=== PATIENT | female | born 1975 | race Caucasian/White ===

== ENCOUNTER 2022-07-21 13:13 | Inpatient (IN) ==
[2022-07-21] MEDS ORDERED: KETOROLAC TROMETHAMINE 15 MG/ML VIAL IV STA (13:28)
--- NOTE | 2022-07-21 13:28 | ED Triage Note ---
Date of Service July 21, 2022 History of Present Illness This patient was briefly evaluated while in triage. An abbreviated physical exam was performed. This patient is a 47-year-old Female who presents to the ED for evaluation of left sided flank pain. Diagnosed with 4.5mm kidney stone at [facility]. Notes increasing pain as well as decreased voiding and hematuria. Denies fever/chills. She has been taking her prescribed oxycodone and Flomax. Physical Exam Constitutional: alert and oriented x3.mild distress secondary to pain HEENT: normocephalic, atraumatic. normal conjunctiva.PERRLA. EOM's grossly intact. Respiratory: lungs are clear to auscultation without wheezes, rhonchi, or rales bilaterally. equal chest rise. normal respiratory effort, no accessory muscle use. Cardiovascular: normal heart sounds without murmur. regular rate and rhythm. GI: abdomen is soft, nontender. No palpable masses. No rebound tenderness or guarding. Left CVA tenderness MSK: moves all 4 extremities spontaneously Psych:appropriate mood and affect. Initial orders for labs and / or imaging were placed and patient was placed in the waiting area until a bed is available. Please see further documentation for the full ED course.
--- NOTE | 2022-07-21 14:53 | Emergency Department Note ---
History of Present Illness General Chief complaint: Flank Pain Stated complaint: KIDNEY STONE, FLANK PAIN Time Seen by Provider: 07/21/22 14:42 History of Present Illness Maximum Pain Intensity: 10 This is a 47-year-old female that presents to the emergency department via private vehicle with complaints of "kidney stone, flank pain". Patient notes that she has had hematuria for the past 2 to 3 weeks. Then this past she began with left flank pain/abdominal pain. She had associated nausea and vomiting. She notes she presented to [place] emergency department where she was diagnosed with a 4.5 mm kidney stone on the left. She notes that she was discharged home on Flomax and analgesia. She was doing well but this morning noted severe discomfort that has not been alleviated by the prescription pain medication she was provided on her recent ED visit. She denies any fevers or chills. She has had 2 doses of tamsulosin since discharge from the emergency department. She denies chance of noting history of hysterectomy. No history of kidney stones. Home Medications Medication Instructions Recorded Confirmed Type bupropion HCl 300 mg 24 hr tablet, 300 mg PO QAM 11/21/20 07/21/22 History extended release ibuprofen 200 mg tablet (Advil) 200 - 400 mg PO Q6H PRN Pain 11/21/20 07/21/22 History lisinopril 10 mg tablet 10 mg PO DAILY 11/21/20 07/21/22 History vitamin C 50 mg-biotin 1,250 mcg 1 tab PO DAILY 04/26/21 07/21/22 History chewable tablet ([id number] (vit C-biotin)) cholecalciferol (vitamin D3) 125 125 mcg PO DAILY 07/21/22 07/21/22 History mcg (5,000 unit) capsule propranolol 40 mg tablet 40 mg PO DAILY 07/21/22 07/21/22 History tamsulosin 0.4 mg capsule 0.4 mg PO DAILY 07/21/22 07/21/22 History vitamin B complex 1 tab PO DAILY 07/21/22 07/21/22 History Allergies Allergy/AdvReac Type Severity Reaction Status Date / Time amoxicillin Allergy Severe Hives, Verified 07/21/22 16:55 Passed Out, Incontinence milk Allergy Intermediate Gastrointestinal Unverified 07/21/22 16:55 Upset Past Med/Surg History Medical History COVID-19 (04/2020) Depression Hypertension 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 Grandfather (Maternal) , Passed in late 70's from Bone Cancer No problems noted. Grandfather (Paternal) , Passed in 70's of Pancreatic Cancer No problems noted. Mother No problems noted. Father , Passed age 42 of [place] No problems noted. Brother No problems noted. Son No problems noted. Son No problems noted. Son No problems noted. Social History Smoking Status: Current every day smoker Tobacco Type: E-cigarettes / Vaping packs per day: 1; Cigarettes Per Day: Vapes.; Second Hand Exposure: No; Do You Dip or Chew Tobacco: No; Tobacco Cessation Education Requested by Patient: No Hx Alcohol Use: No Hx Substance Use: No Preferred Language: Faroese Communication Ability: Effective Visual Impairment: Limited Hearing Ability: Normal Margin Trimmer Required: No Beliefs That Will Affect Care: None marital status: Current Living Situation: Family current occupational status: employed current occupation: works at [employer] Other Information That Helps Us Care for You: No Feels Safe at Home: Yes Safety Concerns: Feels Safe At This Time Childhood Exposure to Second-Hand Smoke: Yes Diet: regular caffeine: Yes (2 bottles of mt dew soda) during the past year weight has: remained stable Dental Care, Regularly: Yes Assistive Devices: Contacts and Glasses Review of Systems A total of 10 systems reviewed and were otherwise negative Physical Exam Vital Signs Vital Signs - 24 hr 07/21/22 13:26 07/21/22 14:54 07/21/22 15:05 Temperature 36.6 C Temperature Source Temporal Artery Scan Pulse Rate 64 49 L Pulse Rate [Right Apical] 54 L Respiratory Rate 18 13 Respiratory Effort / Characteristics Non-Labored Spontaneous Non-Labored Spontaneous Respiratory Depth Normal Normal Respiratory Pattern Regular Regular Blood Pressure 145/90 H Blood Pressure [Left Arm] 145/96 H Blood Pressure Mean 108 Blood Pressure Mean [Left Arm] 112 Blood Pressure Position Sitting Pulse Oximetry 98 97 Oxygen Delivery Method Room Air Room Air Sepsis Recent Fever Within 48 Hours No Sepsis New/Unexplained Change in Mental Status N/A Sepsis Action Taken by Nursing No Action Required 07/21/22 16:26 07/21/22 16:59 07/21/22 17:58 Temperature Temperature Source Pulse Rate 56 L 59 L Pulse Rate [Right Apical] Respiratory Rate 20 15 Respiratory Effort / Characteristics Respiratory Depth Respiratory Pattern Blood Pressure 140/83 140/97 Blood Pressure [Left Arm] Blood Pressure Mean 102 111 Blood Pressure Mean [Left Arm] Blood Pressure Position Pulse Oximetry 99 99 98 Oxygen Delivery Method Room Air Room Air Room Air Sepsis Recent Fever Within 48 Hours Sepsis New/Unexplained Change in Mental Status Sepsis Action Taken by Nursing 07/21/22 18:04 Temperature Temperature Source Pulse Rate 56 L Pulse Rate [Right Apical] Respiratory Rate 56 H Respiratory Effort / Characteristics Respiratory Depth Respiratory Pattern Blood Pressure 176/117 H Blood Pressure [Left Arm] Blood Pressure Mean 136 Blood Pressure Mean [Left Arm] Blood Pressure Position Pulse Oximetry 100 Oxygen Delivery Method Room Air Sepsis Recent Fever Within 48 Hours Sepsis New/Unexplained Change in Mental Status Sepsis Action Taken by Nursing VITAL SIGNS - Vital signs and triage nursing notes were reviewed. Stable and afebrile. GENERAL -47-year-old female appearing her stated age who is in no acute distress. Communicates well with provider and answers questions appropriately. SKIN - Without rashes. No meningeal or petechial rash. The skin overlying the left flank is unremarkable. HEAD - NC/AT. EYES - PERRL with EOMI bilaterally. Sclera anicteric. EARS - No deformities of external structures noted on gross examination bila terally. NOSE - Midline and without cyanosis. No epistaxis or purulent drainage noted. MOUTH/OROPHARYNX - Without perioral cyanosis. NECK - Neck with FROM. No nuchal rigidity. LUNGS - Chest wall symmetric without accessory muscle use, intercostals retractions, or central cyanosis. Normal vesicular breath sounds CTA B/L. No wheezes, rales, or rhonchi appreciated. CARDIAC - RRR with S1/S2. No murmur, rubs, or gallops appreciated. ABDOMEN - Abdominal contour normal without pulsations or visible masses. BS normoactive all four quadrants. No tenderness, palpable masses, hepatosplenomegaly, or ascites noted. EXTREMITIES - No clubbing or peripheral cyanosis. +5/5 strength noted in UE/LE bilaterally. NEUROLOGIC - Cranial nerves II through XII grossly intact. PSYCH - A&Ox3 and cooperates fully with examiner. Pt is very pleasant and interacts well with examiner. Course Administered Medications Bupropion HCl (Bupropion Xl 300 Mg Tabcr) 300 mg PO QAM [facility] Stop: 08/21/22 08:59 Last Admin: 07/22/22 07:22 Dose: 300 mg Documented By: ANDRE Sodium Chloride (Nss 1000ml) 1,000 mls @ 100 mls/hr IV .Q10H [facility] Stop: 07/22/22 15:14 Last Admin: 07/22/22 05:29 Dose: 100 mls/hr Documented By: Infusion: 07/22/22 05:29 Dose: 100 mls/hr Documented By: Admin: 07/21/22 19:30 Dose: 100 mls/hr Documented By: HARPREET Lisinopril (Lisinopril 10 Mg Tab) 10 mg PO DAILY [facility] Stop: 08/21/22 08:59 Last Admin: 07/22/22 07:22 Dose: 10 mg Documented By: ANDRE Morphine Sulfate (Morphine Sulfate 2 Mg/Ml Carp) 2 mg IV Q4H PRN PRN Reason: Pain (SCALE 4,5,6) Stop: 08/04/22 21:05 Last Admin: 07/22/22 05:29 Dose: 2 mg Documented By: TANNER Morphine Sulfate (Morphine Sulfate 4 Mg/Ml 1 Ml Carp\\Vial) 4 mg IV Q4H PRN PRN Reason: Pain (SCALE 7,8,9,10) Stop: 08/04/22 21:05 Last Admin: 07/22/22 09:47 Dose: 4 mg Documented By: Admin: 07/21/22 21:52 Dose: 4 mg Documented By: TANNER Propranolol HCl (Propranolol Hcl 20 Mg Tab) 40 mg PO DAILY [facility] Stop: 08/21/22 08:59 Last Admin: 07/22/22 07:22 Dose: 40 mg Documented By: ANDRE Tamsulosin HCl (Tamsulosin Hcl 0.4 Mg Cap) 0.4 mg PO QAM RIKY Stop: 08/21/22 08:59 Last Admin: 07/22/22 07:22 Dose: 0.4 mg Documented By: ANDRE Discontinued Medications Sodium Chloride (Nss 1000ml) 1,000 mls @ 999 mls/hr IV .Q1H1M RIKY Stop: 07/21/22 17:15 Last Infusion: 07/21/22 18:07 Dose: 0 mls/hr Documented By: Admin: 07/21/22 16:27 Dose: 999 mls/hr Documented By: JOHAN Ketorolac Tromethamine (Ketorolac Tromethamine 15 Mg/Ml Vial) 15 mg IV ONE STA Stop: 07/21/22 13:29 Last Admin: 07/21/22 14:36 Dose: 15 mg Documented By: CHRIS Morphine Sulfate (Morphine Sulfate 4 Mg/Ml 1 Ml Carp\\Vial) 4 mg IV NOW STA Stop: 07/21/22 17:13 Last Admin: 07/21/22 17:18 Dose: 4 mg Documented By: JOHAN Morphine Sulfate (Morphine Sulfate 4 Mg/Ml 1 Ml Carp\\Vial) 4 mg IV NOW STA Stop: 07/21/22 17:48 Last Admin: 07/21/22 17:51 Dose: 4 mg Documented By: JOHAN Tamsulosin HCl (Tamsulosin Hcl 0.4 Mg Cap) 0.4 mg PO NOW ONE Stop: 07/21/22 21:07 Last Admin: 07/21/22 21:57 Dose: 0.4 mg Documented By: TANNER Medical Decision Making Laboratory Data 07/21/22 14:35 07/21/22 14:35 Lab Results 07/21/22 07/21/22 07/21/22 Range/Units 14:35 14:35 14:35 WBC 7.11 (4.8-10.8) K/ul RBC 4.38 (4.20-5.40) M/uL Hgb 12.8 (12.0-16.0) g/dl Hct 37.3 (37.0-47.0) % MCV 85.2 (80.0-100.0) fL MCH 29.2 (25.0-34.0) pg MCHC 34.3 (32.0-36.0) g/dL RDW Std Deviation 37.7 (36.4-46.3) fL RDW Coeff of Servando 12.2 (11.5-14.5) % Plt Count 241 (130-400) K/uL MPV 12.6 H (9.4-12.4) fL Immature Gran % (Auto) 0.1 % Neut % (Auto) 61.6 % Lymph % (Auto) 27.7 % [place] % (Auto) 7.7 % Eos % (Auto) 1.8 % Baso % (Auto) 1.1 % Neut # (Auto) 4.37 (1.40-6.50) K/uL Lymph # (Auto) 1.97 (1.2-3.4) K/uL [place] # (Auto) 0.55 (0.11-0.59) K/uL Eos # (Auto) 0.13 (0-0.50) K/uL Baso # (Auto) 0.08 (0-0.2) K/uL Immature Gran # (Auto) 0.01 (0.01-0.20) K/uL Sodium 139 (136-145) mmol/L Potassium 4.0 (3.5-5.1) mmol/L Chloride 107 (98-107) mmol/L Carbon Dioxide 27 (21-32) mmol/L Anion Gap 5 (3-11) BUN 22 (6-23) mg/dl Creatinine 0.73 (0.6-1.2) mg/dl Est Cr Clr Drug Dosing 106.5 ml/min Est GFR ( Amer) 113.7 ml/min Est GFR (Non-Af Amer) 98.1 ml/min BUN/Creatinine Ratio 30.1 H (10-20) Glucose 88 (70-99(Fasting)) mg/dl Calcium 9.2 (8.6-10.3) mg/dl Total Bilirubin 0.8 (0.2-1.0) mg/dl AST 14 (13-39) U/L ALT 10 (7-52) U/L Alkaline Phosphatase 47 (34-104) U/L Total Protein 6.8 (6.0-8.3) gm/dl Albumin 4.3 (3.4-5.0) gm/dl Globulin 2.5 (2.5-4.0) gm/dl Albumin/Globulin Ratio 1.7 (0.9-2) Urine Color Yellow Urine Appearance Clear (Clear) Urine pH 5.5 (4.5-7.5) Ur Specific [place] 1.019 (1.000-1.030) Urine Protein 1+ H (Negative) Urine Glucose (UA) Negative (Negative) Urine Ketones Negative (Negative) Urine Blood 3+ H (Negative) Urine Nitrite Negative (Negative) Urine Bilirubin Negative (Negative) Urine Urobilinogen Negative (Negative) Ur Leukocyte Esterase Trace H (Negative) Urine WBC (Auto) 1-5 (0-5) /hpf Urine RBC (Auto) >30 H (0-4) /hpf U Hyaline Cast (Auto) 1-5 (0-5) /lpf U Epithel Cells (Auto) 10-20 H (0-5) /lpf Urine Bacteria (Auto) Negative (Negative) SARS-CoV-2, RNA, NAAT (NEGATIVE) 07/21/22 Range/Units 17:53 WBC (4.8-10.8) K/ul RBC (4.20-5.40) M/uL Hgb (12.0-16.0) g/dl Hct (37.0-47.0) % MCV (80.0-100.0) fL MCH (25.0-34.0) pg MCHC (32.0-36.0) g/dL RDW Std Deviation (36.4-46.3) fL RDW Coeff of Servando (11.5-14.5) % Plt Count (130-400) K/uL MPV (9.4-12.4) fL Immature Gran % (Auto) % Neut % (Auto) % Lymph % (Auto) % [place] % (Auto) % Eos % (Auto) % Baso % (Auto) % Neut # (Auto) (1.40-6.50) K/uL Lymph # (Auto) (1.2-3.4) K/uL [place] # (Auto) (0.11-0.59) K/uL Eos # (Auto) (0-0.50) K/uL Baso # (Auto) (0-0.2) K/uL Immature Gran # (Auto) (0.01-0.20) K/uL Sodium (136-145) mmol/L Potassium (3.5-5.1) mmol/L Chloride (98-107) mmol/L Carbon Dioxide (21-32) mmol/L Anion Gap (3-11) BUN (6-23) mg/dl Creatinine (0.6-1.2) mg/dl Est Cr Clr Drug Dosing ml/min Est GFR ( Amer) ml/min Est GFR (Non-Af Amer) ml/min BUN/Creatinine Ratio (10-20) Glucose (70-99(Fasting)) mg/dl Calcium (8.6-10.3) mg/dl Total Bilirubin (0.2-1.0) mg/dl AST (13-39) U/L ALT (7-52) U/L Alkaline Phosphatase (34-104) U/L Total Protein (6.0-8.3) gm/dl Albumin (3.4-5.0) gm/dl Globulin (2.5-4.0) gm/dl Albumin/Globulin Ratio (0.9-2) Urine Color Urine Appearance (Clear) Urine pH (4.5-7.5) Ur Specific [place] (1.000-1.030) Urine Protein (Negative) Urine Glucose (UA) (Negative) Urine Ketones (Negative) Urine Blood (Negative) Urine Nitrite (Negative) Urine Bilirubin (Negative) Urine Urobilinogen (Negative) Ur Leukocyte Esterase (Negative) Urine WBC (Auto) (0-5) /hpf Urine RBC (Auto) (0-4) /hpf U Hyaline Cast (Auto) (0-5) /lpf U Epithel Cells (Auto) (0-5) /lpf Urine Bacteria (Auto) (Negative) SARS-CoV-2, RNA, NAAT NEGATIVE (NEGATIVE) Imaging Data Radiologist's Impression: Renal Ultrasound 07/21/22 13:29 ULTRASOUND KIDNEYS AND BLADDER CLINICAL HISTORY: Nephrolithiasis. Left flank pain. COMPARISON STUDY: Abdominal CT dated 11/16/2020 TECHNIQUE: Real-time, grayscale, and color flow sonography of the kidneys and bladder is performed. Images are reviewed in the transverse and longitudinal planes. FINDINGS: Kidneys: The kidneys are normal in size and echotexture. The right kidney measures 11.9 cm in length and the left kidney measures 12.3 cm in length. There is mild to moderate left-sided hydronephrosis. No hydronephrosis is seen on the right. An 8 mm calculus is seen in the left proximal ureter. No additional shadowing renal calculi are identified in either kidney. A 2.4 cm minimally complex cyst is seen in the right upper pole. There is no sonographic evidence of solid renal mass lesion. No perinephric fluid is identified. Bladder: The bladder is normal in appearance. Bilateral ureteral jets were seen. Upper abdomen: A 2.3 cm echogenic lesion in the right lobe of the liver is typical for a hemangioma. This was also seen on the 2020 CT scan. IMPRESSION: 1. There is an 8 mm calculus in the left proximal ureter causing mild to moderate hydronephrosis 2. No hydronephrosis is seen on the right. 3. Both bladder jets were identified. ACT 112: Negative or not required by law. Electronically signed by: Bandar Valentine M.D. 07/21/2022 3:55 PM KUB X-Ray 07/21/22 14:50 KUB HISTORY: Acute left-sided flank pain L flank pain with known 4.5mm stone COMPARISON: Renal ultrasound of same day, CT abdomen and pelvis 11/16/2020 FINDINGS: Nonobstructive bowel gas pattern. Renal shadows are obscured by bowel gas. 6 mm left ureteral calculus at the level L3-L4. Unchanged pelvic basin phleboliths. No pneumoperitoneum or pneumatosis. No fracture. IMPRESSION: 6 mm left ureteral calculus at the level of L3-L4. ACT 112: Negative or not required by law. The above report was generated using voice recognition software. It may contain grammatical, syntax or spelling errors. Electronically signed by: Junior Pastor M.D. 07/21/2022 3:54 PM MDM Narrative Patient was seen and evaluated as above in room c12. Review was performed of triage nursing notes and vital signs. After obtaining a thorough history and physical examination the above work up was performed. Patient presents to us today for assessment of left flank pain in the setting of known kidney stone. Clinically well-appearing and nontoxic. Vital signs stable. Patient seen during a period of high volume and acuity and already provided IV Toradol from assessment in triage. IV access was established. Labs were drawn. There is no concerning leukocytosis or emergent anemia. No emergent metabolic disturbance. No signs of UTI. COVID testing negative. Ultrasound of the kidneys/bladder as well as KUB reveals an obstructing calculus in the left proximal ureter causing mild to moderate hydronephrosis. This clinically correlates with her presentation. I discussed findings with the on-call urologist, Dr. Gibson. Several options were presented to the patient in regard to inpatient versus outpatient management. As I was reviewing these options with the patient she had return of discomfort and did require 2 doses of IV morphine to manage her pain. Patient desires inpatient management which I believe is reasonable. Case discussed with the hospitalist service. Please refer to further documentation regarding her stay. GCS: 15 In the evaluation and treatment of this patient the following differential diagnoses were entertained: UTI, pyelonephritis, obstructing stone, infected obstructing stone, among others. Impression & Plan Calculus of proximal left ureter, Acute left flank pain, Hydronephrosis Discharge Plan Visit Data Chief Complaint: Flank Pain Stated Complaint: KIDNEY STONE, FLANK PAIN ED Provider: Daquan Schwartz ED Midlevel Provider: Bartolo Kennedy Discharge Problem: Calculus of proximal left ureter, Acute left flank pain, Hydronephrosis Patient Disposition: Admitted As Inpatient Discharge Instructions Interventions: ED Discharge Assessment Last Done: 07/21/22 20:28
[2022-07-21 15:24] LABS: Basophils # (auto) 0.08 K/uL (0-0.2); Basophils % (auto) 1.1 %; Eosinophils # (auto) 0.13 K/uL (0-0.50); Eosinophils % (auto) 1.8 %; Hematocrit (blood only) 37.3 % (37.0-47.0); Hemoglobin 12.8 g/dl (12.0-16.0); Immature Granulocytes # (auto) 0.01 K/uL (0.01-0.20); Immature Granulocytes % (auto) 0.1 %; Lymphocytes # (auto) 1.97 K/uL (1.2-3.4); Lymphocytes % (auto) 27.7 %; Mean Corpuscular Hemoglobin 29.2 pg (25.0-34.0); Mean Corpuscular Hgb Conc 34.3 g/dL (32.0-36.0); Mean Corpuscular Volume 85.2 fL (80.0-100.0); Mean Platelet Volume 12.6 fL (9.4-12.4); Monocytes # (auto) 0.55 K/uL (0.11-0.59); Monocytes % (auto) 7.7 %; Neutrophils # (auto) 4.37 K/uL (1.40-6.50); Neutrophils % (auto) 61.6 %; Platelet Count 241 K/uL (130-400); RDW Coefficient of Variation 12.2 % (11.5-14.5); RDW Standard Deviation 37.7 fL (36.4-46.3); Red Blood Count 4.38 M/uL (4.20-5.40); White Blood Count 7.11 K/ul (4.8-10.8)
[2022-07-21 15:26] LABS: Appearance Urine Clear (Clear); Bacteria Urine Automated Negative (Negative); Bilirubin Urine Negative (Negative); Blood Urine 3+ (Negative); Color Urine Yellow; Glucose Urine UA Negative (Negative); Ketones Urine Negative (Negative); Leukocyte Esterase Urine Trace (Negative); Nitrite Urine Negative (Negative); Protein Urine 1+ (Negative); RBC Urine Automated >30 /hpf (0-4); Specific Gravity Urine 1.019 (1.000-1.030); Urobilinogen Urine Negative (Negative); pH Urine 5.5 (4.5-7.5)
[2022-07-21 15:30] LABS: Albumin Globulin Ratio 1.7 (0.9-2); Albumin Level 4.3 gm/dl (3.4-5.0); BUN Creatinine Ratio 30.1 (10-20); Bilirubin,Total 0.8 mg/dl (0.2-1.0); Calcium 9.2 mg/dl (8.6-10.3); Creatinine Clr Calc Pharmacy 106.5 ml/min; Est GFR (African American) 113.7 ml/min; Est GFR (Non-African American) 98.1 ml/min; Globulin 2.5 gm/dl (2.5-4.0); Total Protein 6.8 gm/dl (6.0-8.3)
--- NOTE | 2022-07-21 15:56 | Ultrasound Report ---
ULTRASOUND KIDNEYS AND BLADDER CLINICAL HISTORY: Nephrolithiasis. Left flank pain. COMPARISON STUDY: Abdominal CT dated 11/16/2020 TECHNIQUE: Real-time, grayscale, and color flow sonography of the kidneys and bladder is performed. I mages are reviewed in the transverse and longitudinal planes. FINDINGS: Kidneys: The kidneys are normal in size and echotexture. The right kidney measures 11.9 cm in length and the left kidney measures 12.3 cm in length. There is mild to moderate left-sided hydronephrosis. No hydronephrosis is seen on the right. An 8 mm calculus is seen in the left proximal ureter. No add itional shadowing renal calculi are identified in either kidney. A 2.4 cm minimally complex cyst is s een in the right upper pole. There is no sonographic evidence of solid renal mass lesion. No perineph tisha fluid is identified. Bladder: The bladder is normal in appearance. Bilateral ureteral jets were seen. Upper abdomen: A 2.3 cm echogenic lesion in the right lobe of the liver is typical for a hemangioma. This was also seen on the 2020 CT scan. IMPRESSION: 1. There is an 8 mm calculus in the left proximal ureter causing mild to moderate hydronephrosis 2. No hydronephrosis is seen on the right. 3. Both bladder jets were identified. ACT 112: Negative or not required by law. Electronically signed by: Bandar Valentine M.D. 07/21/2022 3:55 PM
--- NOTE | 2022-07-21 15:56 | XRay Report ---
KUB HISTORY: Acute left-sided flank pain L flank pain with known 4.5mm stone COMPARISON: Renal ultrasound of same day, CT abdomen and pelvis 11/16/2020 FINDINGS: Nonobstructive edmund wel gas pattern. Renal shadows are obscured by bowel gas. 6 mm left ureteral calculus at the level L 3-L4. Unchanged pelvic basin phleboliths. No pneumoperitoneum or pneumatosis. No fracture. IMPRESSION: 6 mm left ureteral calculus at the level of L3-L4. ACT 112: Negative or not required by law. The above report was generated using voice recognition software. It may contain grammatical, syntax o r spelling errors. Electronically signed by: Junior Pastor M.D. 07/21/2022 3:54 PM
[2022-07-21] MEDS ORDERED: SODIUM CHLORIDE 0.9% 1000ML 1,000 ML IV SCH (16:15)
[2022-07-21] MEDS ORDERED: MoRPHine SULFATE 4 MG/ML 1 ML CARP\\VIAL IV STA ×2 (17:12→17:47)
--- NOTE | 2022-07-21 19:02 | History & Physical Report ---
Date of Service July 21, 2022 Assessment & Plan (1) Hydronephrosis concurrent with and due to calculi of kidney and ureter: Plan: 47 y/o female with a history of myxoid liposarcoma s/p resection and XRT, HTN, depression who presented to the ED today with recurrent left flank pain due to known left nephrolithiasis. Imaging in the ED today showed obstruction proximal stone with mild to moderate hydronephrosis. initially, pain in the ED had improved with Toradol but then returned before pt was discharged, required two doses of IV morphine for pain to be controlled. ED provider spoke with urology - initial plan for ESWL as outpatient but due to recurrent severe pain, pt referred for admission instead. Tentative plan for OR tomorrow for stent placement pending urology evaluation. - Admit to med surg - Consult urology - will make pt NPO after midnight for possible OR tomorrow - Labs in AM - CBC, BMP - No signs of infection at present so will hold antibiotics for now - Strain urine - Pain control, anti-emetics - Gentle IVF overnight (2) Left nephrolithiasis: (3) Hypertension: (4) Depression: Plan Continue other home medications as appropriate. Pt seen and reviewed with collaborating physician, Dr. Farr. Plan of care discussed and as outlined above. Code Status: Full code DVT prophylaxis: Nany Martinez PA-C History of Present Illness Chief Complaint: Left flank pain Primary Care Provider: Crissy Webb This is a 47 y/o female with a history of myxoid liposarcoma s/p resection and XRT, HTN, and depression who presents to the ED today with recurrence of left flank pain from known kidney stone. Pt reports she developed the acute onset of left flank pain with associated nausea and vomiting four days ago and was seen in the ED at [facility] that night. Diagnosed with a 4.5 mm left kidney stone and sent home with Percocet and Flomax, told it would likely pass on its own but that she should follow-up with urology as outpatient. Over the weekend, she was feeling better. Took Flomax x 2 doses, used Percocet at night initially but then didn't take it last night since the pain seemed to be improved. This morning, she developed recurrent left flank and LLQ pain similar to last week and the Percocet was providing no relief so came to the ED for evaluation. She has also noted intermittent hematuria when the pain is worse. First episode of hematuria was a few weeks ago, preceded the pain. She denies prior history of nephrolithiasis. She describes the pain as constant and similar to labor pains but not easing off until she receives pain medication. It does radiate to her mid-back on the left and down to left groin area. Today, she had associated nausea but no further emesis. Denies fevers, chills, sweats, CP, SOB, VALE, dizziness. Urine output has been decreased with the sensation of incompletely emptying. Initially, pain in the ED was relieved with Toradol but then recurred. After morphine 4 mg x 2 doses, pain is controlled again. ED provider spoke with urology regarding possible stent placement tomorrow. Allergies Allergy/AdvReac Type Severity Reaction Status Date / Time amoxicillin Allergy Severe Hives, Verified 07/21/22 16:55 Passed Out, Incontinence milk Allergy Intermediate Gastrointestinal Unverified 07/21/22 16:55 Upset Home Medications Medication Instructions Recorded Confirmed Type bupropion HCl 300 mg 24 hr tablet, 300 mg PO QAM 11/21/20 07/21/22 History extended release ibuprofen 200 mg tablet (Advil) 200 - 400 mg PO Q6H PRN Pain 11/21/20 07/21/22 History lisinopril 10 mg tablet 10 mg PO DAILY 11/21/20 07/21/22 History vitamin C 50 mg-biotin 1,250 mcg 1 tab PO DAILY 04/26/21 07/21/22 History chewable tablet (Bwpc-[id number]-Igpgs (vit C-biotin)) cholecalciferol (vitamin D3) 125 125 mcg PO DAILY 07/21/22 07/21/22 History mcg (5,000 unit) capsule propranolol 40 mg tablet 40 mg PO DAILY 07/21/22 07/21/22 History tamsulosin 0.4 mg capsule 0.4 mg PO DAILY 07/21/22 07/21/22 History vitamin B complex 1 tab PO DAILY 07/21/22 07/21/22 History Past Med/Surg History Medical History COVID-19 (04/2020) Depression Hypertension 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 Grandfather (Maternal) , Passed in late 70's from Bone Cancer No problems noted. Grandfather (Paternal) , Passed in 70's of Pancreatic Cancer No problems noted. Mother No problems noted. Father , Passed age 42 of [place] No problems noted. Brother No problems noted. Son No problems noted. Son No problems noted. Son No problems noted. Social History Smoking Status: Current every day smoker Tobacco Type: E-cigarettes / Vaping packs per day: 1; Cigarettes Per Day: Vapes.; Second Hand Exposure: No; Do You Dip or Chew Tobacco: No; Hx Alcohol Use: No Hx Substance Use: No Preferred Language: Yoruba Communication Ability: Effective Visual Impairment: Limited Hearing Ability: Normal Roll On Worker Required: No Beliefs That Will Affect Care: None marital status: Current Living Situation: Family current occupational status: employed current occupation: works at [employer] Feels Safe at Home: Yes Childhood Exposure to Second-Hand Smoke: Yes Diet: regular caffeine: Yes (2 bottles of mt dew soda) during the past year weight has: remained stable Dental Care, Regularly: Yes Assistive Devices: None Review of Systems Review of Systems: All systems reviewed & are unremarkable except as noted in HPI & below Constitutional: no fever, no chills and no sweats Eyes: no diplopia Ear, Nose, Mouth, Throat: no nasal congestion and no sore throat Respiratory: no cough and no dyspnea Cardiovascular: no chest pain, no palpitations and no syncope Gastrointestinal: no change in bowel habits and no blood in stools Genitourinary: as per Subjective / HPI Musculoskeletal: + back pain; no neck pain and no joint pain Integumentary: no rash Neurologic: no paresthesia, no dizziness and no headache(s) Psychiatric: no depression and no anxiety Physical Exam Constitutional: well developed and well nourished; no acute distress Eyes: + anicteric sclerae ENMT: external ear and nose normal, oropharynx normal Neck: trachea midline Respiratory: no respiratory distress and no labored breathing Auscultation: lungs clear to auscultation bilaterally; no rales, no rhonchi and no wheezes Cardiovascular: Rate/Rhythm: regular rate and regular rhythm Heart Sounds: no murmur Vessels: dorsalis pedis pulses present and radial pulses present Extremities: no pedal edema Gastrointestinal (Abdomen): Inspection/Auscultation: normal bowel sounds; abdomen not distended Percussion/Palpation: + abdomen tender (mild LLQ and left flank) and abdomen soft Musculoskeletal: Head/Neck/Chest: normocephalic, head atraumatic and neck supple Skin: no jaundice Neurologic: moves all extremities; no focal motor deficits and not confused Psychiatric: A+Ox3, euthymic affect Results & Data Results & Data Vital Signs (Past 12 Hours) Vital Signs Temp Pulse Pulse Resp BP BP Pulse Ox 07/21/22 18:04 56 L 56 H 176/117 H 100 07/21/22 17:58 98 07/21/22 16:59 59 L 15 140/97 99 07/21/22 16:26 56 L 20 140/83 99 07/21/22 15:05 49 L 07/21/22 14:54 54 L 13 145/96 H 97 07/21/22 13:26 36.6 C 64 18 145/90 H 98 O2 Del Method 07/21/22 18:04 Room Air 07/21/22 17:58 Room Air 07/21/22 16:59 Room Air 07/21/22 16:26 Room Air 07/21/22 15:05 07/21/22 14:54 Room Air 07/21/22 13:26 Room Air Laboratory Results Laboratory Results - last 24 hr 07/21/22 07/21/22 07/21/22 14:35 14:35 14:35 WBC 7.11 RBC 4.38 Hgb 12.8 Hct 37.3 MCV 85.2 MCH 29.2 MCHC 34.3 RDW Std Deviation 37.7 RDW Coeff of Servando 12.2 Plt Count 241 MPV 12.6 H Immature Gran % (Auto) 0.1 Neut % (Auto) 61.6 Lymph % (Auto) 27.7 [place] % (Auto) 7.7 Eos % (Auto) 1.8 Baso % (Auto) 1.1 Neut # (Auto) 4.37 Lymph # (Auto) 1.97 [place] # (Auto) 0.55 Eos # (Auto) 0.13 Baso # (Auto) 0.08 Immature Gran # (Auto) 0.01 Sodium 139 Potassium 4.0 Chloride 107 Carbon Dioxide 27 Anion Gap 5 BUN 22 Creatinine 0.73 Est Cr Clr Drug Dosing 106.5 Est GFR ( Amer) 113.7 Est GFR (Non-Af Amer) 98.1 BUN/Creatinine Ratio 30.1 H Glucose 88 Calcium 9.2 Total Bilirubin 0.8 AST 14 ALT 10 Alkaline Phosphatase 47 Total Protein 6.8 Albumin 4.3 Globulin 2.5 Albumin/Globulin Ratio 1.7 Urine Color Yellow Urine Appearance Clear Urine pH 5.5 Ur Specific [place] 1.019 Urine Protein 1+ H Urine Glucose (UA) Negative Urine Ketones Negative Urine Blood 3+ H Urine Nitrite Negative Urine Bilirubin Negative Urine Urobilinogen Negative Ur Leukocyte Esterase Trace H Urine WBC (Auto) 1-5 Urine RBC (Auto) >30 H U Hyaline Cast (Auto) 1-5 U Epithel Cells (Auto) 10-20 H Urine Bacteria (Auto) Negative SARS-CoV-2, RNA, NAAT 07/21/22 17:53 WBC RBC Hgb Hct MCV MCH MCHC RDW Std Deviation RDW Coeff of Servando Plt Count MPV Immature Gran % (Auto) Neut % (Auto) Lymph % (Auto) [place] % (Auto) Eos % (Auto) Baso % (Auto) Neut # (Auto) Lymph # (Auto) [place] # (Auto) Eos # (Auto) Baso # (Auto) Immature Gran # (Auto) Sodium Potassium Chloride Carbon Dioxide Anion Gap BUN Creatinine Est Cr Clr Drug Dosing Est GFR ( Amer) Est GFR (Non-Af Amer) BUN/Creatinine Ratio Glucose Calcium Total Bilirubin AST ALT Alkaline Phosphatase Total Protein Albumin Globulin Albumin/Globulin Ratio Urine Color Urine Appearance Urine pH Ur Specific [place] Urine Protein Urine Glucose (UA) Urine Ketones Urine Blood Urine Nitrite Urine Bilirubin Urine Urobilinogen Ur Leukocyte Esterase Urine WBC (Auto) Urine RBC (Auto) U Hyaline Cast (Auto) U Epithel Cells (Auto) Urine Bacteria (Auto) SARS-CoV-2, RNA, NAAT NEGATIVE Diagnostic Findings Renal Ultrasound 07/21/22 13:29 ULTRASOUND KIDNEYS AND BLADDER CLINICAL HISTORY: Nephrolithiasis. Left flank pain. COMPARISON STUDY: Abdominal CT dated 11/16/2020 TECHNIQUE: Real-time, grayscale, and color flow sonography of the kidneys and bladder is performed. Images are reviewed in the transverse and longitudinal planes. FINDINGS: Kidneys: The kidneys are normal in size and echotexture. The right kidney measures 11.9 cm in length and the left kidney measures 12.3 cm in length. There is mild to moderate left-sided hydronephrosis. No hydronephrosis is seen on the right. An 8 mm calculus is seen in the left proximal ureter. No additional shadowing renal calculi are identified in either kidney. A 2.4 cm minimally complex cyst is seen in the right upper pole. There is no sonographic evidence of solid renal mass lesion. No perinephric fluid is identified. Bladder: The bladder is normal in appearance. Bilateral ureteral jets were seen. Upper abdomen: A 2.3 cm echogenic lesion in the right lobe of the liver is typical for a hemangioma. This was also seen on the 2020 CT scan. IMPRESSION: 1. There is an 8 mm calculus in the left proximal ureter causing mild to moderate hydronephrosis 2. No hydronephrosis is seen on the right. 3. Both bladder jets were identified. KUB X-Ray 07/21/22 14:50 KUB HISTORY: Acute left-sided flank pain L flank pain with known 4.5mm stone COMPARISON: Renal ultrasound of same day, CT abdomen and pelvis 11/16/2020 FINDINGS: Nonobstructive bowel gas pattern. Renal shadows are obscured by bowel gas. 6 mm left ureteral calculus at the level L3-L4. Unchanged pelvic basin phleboliths. No pneumoperitoneum or pneumatosis. No fracture. IMPRESSION: 6 mm left ureteral calculus at the level of L3-L4. Medications Administered Discontinued Medications Sodium Chloride (Nss 1000ml) 1,000 mls @ 999 mls/hr IV .Q1H1M RIKY Stop: 07/21/22 17:15 Last Infusion: 07/21/22 18:07 Dose: 0 mls/hr Documented By: Admin: 07/21/22 16:27 Dose: 999 mls/hr Documented By: JOHAN Ketorolac Tromethamine (Ketorolac Tromethamine 15 Mg/Ml Vial) 15 mg IV ONE STA Stop: 07/21/22 13:29 Last Admin: 07/21/22 14:36 Dose: 15 mg Documented By: CHRIS Morphine Sulfate (Morphine Sulfate 4 Mg/Ml 1 Ml Carp\Vial) 4 mg IV NOW STA Stop: 07/21/22 17:13 Last Admin: 07/21/22 17:18 Dose: 4 mg Documented By: JOHAN Morphine Sulfate (Morphine Sulfate 4 Mg/Ml 1 Ml Carp\Vial) 4 mg IV NOW STA Stop: 07/21/22 17:48 Last Admin: 07/21/22 17:51 Dose: 4 mg Documented By: JOHAN Code Status & VTE Plan VTE Prophylaxis Plan VTE Prophylaxis will be ordered: Yes Supervising Physician Co-Signing Physician Notes Pt was seen and examined. Agreed with Caridad MELLO exam, assessment and plan. 47 y/o female with a history of myxoid liposarcoma s/p resection and XRT, HTN, and depression who presents to the ED with left flank pain. Pt said about 4 days ago she developed left flank pain associated with nausea and vomiting. [facility] and had imaging done that showed 4.5 mm left kidne y stone. She was discharged on Percorcet and Flomax and follow up with outpatient urology. She said this morning her left flank pain worsening. She was brought to the ER. U/S of the kidney showed 8 mm calculus in the left proximal ureter causing mild to moderate hydronephrosis. KUB showed 6 mm left ureteral calculus at the level of L3-L4. She received Toradol and Morphine IV in the ER. Currently pain is control. Continue IVF. Urology consult. Will make NPO after midnight for possible ureteral stent placement. Continue pain control. Continue monitor closely. MD Yordan
[2022-07-21] MEDS ORDERED: ONDANSETRON INJ 2 MG/ML 2 ML VIAL IV PRN (19:15)
[2022-07-21] MEDS: SODIUM CHLORIDE 0.9% 1000ML 1,000 ML IV SCH (19:30)
--- NOTE | 2022-07-21 19:50 | Urology Consultation ---
Date of Consultation July 21, 2022 Assessment & Plan (1) Left nephrolithiasis: Patient has been admitted in the hospital service. From a urologic perspective we recommend proceeding as follows: Provide analgesics Provide antiemetics Provide IV fluid for hydration Recommend initiating Flomax for expulsive therapy. I have entered this order Implement n.p.o. status at midnight tonight At the present time the patient is normotensive without tachycardia or fever. She also denies exhibit leukocytosis or acute kidney injury. Therefore feel a trial of conservative passage is warranted. We will however make the patient n.p.o. as noted above that with the patient require cystoscopic intervention she will be prepared for this procedure tomorrow History of Present Illness Reason for Consultation: Nephrolithiasis History of Present Illness This is a 47-year-old female who developed some left flank pain approximately 5 days ago. She was seen at [facility] where she says she was diagnosed with a approximately a 4 mm kidney stone and was able to be discharged home with outpatient follow-up recommended. The patient notes that she has had return of her left flank pain and was seen by her primary care physician who referred her to the emergency department [facility] for further urologic care. The patient notes that the flank pain does radiate to the left side of her abdomen. She has had some intermittent nausea and vomiting but denies any fevers, shakes, or chills. She denies any dysuria but does report some hematuria. Patient says that she has never had kidney stones before. Her most recent oral intake was several minutes before my interview with her Since arrival to the emergency department patient has had labs and imaging which independent reviewed. CBC reveals white blood cell count, hemoglobin, hematocrit, platelet count were all normal. Chemistry profile showed sodium, potassium, BUN, and creatinine were normal. A urinalysis was negative for nitrites but did show trace leukocyte Estrace. There were only 1-5 white blood cells per high-power field no bacteria. A COVID test was negative. Imaging included a KUB which showed patient had a 6 mm left ureteral calculus at the level of approximately L3/L4. A renal ultrasound also showed this kidney stone but estimated size at approximately 8 mm. This was noted to cause some hydronephrosis. At the time my interview the patient was resting comfortably in bed and she was in no distress Allergies Allergy/AdvReac Type Severity Reaction Status Date / Time amoxicillin Allergy Severe Hives, Verified 07/21/22 16:55 Passed Out, Incontinence milk Allergy Intermediate Gastrointestinal Unverified 07/21/22 16:55 Upset Home Medications Medication Instructions Recorded Confirmed Type bupropion HCl 300 mg 24 hr tablet, 300 mg PO QAM 11/21/20 07/21/22 History extended release ibuprofen 200 mg tablet (Advil) 200 - 400 mg PO Q6H PRN Pain 11/21/20 07/21/22 History lisinopril 10 mg tablet 10 mg PO DAILY 11/21/20 07/21/22 History vitamin C 50 mg-biotin 1,250 mcg 1 tab PO DAILY 04/26/21 07/21/22 History chewable tablet (Nkfc-Bwil-Zesvf (vit C-biotin)) cholecalciferol (vitamin D3) 125 125 mcg PO DAILY 07/21/22 07/21/22 History mcg (5,000 unit) capsule propranolol 40 mg tablet 40 mg PO DAILY 07/21/22 07/21/22 History tamsulosin 0.4 mg capsule 0.4 mg PO DAILY 07/21/22 07/21/22 History vitamin B complex 1 tab PO DAILY 07/21/22 07/21/22 History Patient History Medical History COVID-19 (04/2020) Depression Hypertension 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 Grandfather (Maternal) , Passed in late 70's from Bone Cancer No problems noted. Grandfather (Paternal) , Passed in 70's of Pancreatic Cancer No problems noted. Mother No problems noted. Father , Passed age 42 of [place] No problems noted. Brother No problems noted. Son No problems noted. Son No problems noted. Son No problems noted. Social History Smoking Status: Never smoker Tobacco Type: E-cigarettes / Vaping packs per day: 1; Second Hand Exposure: Yes (Mother and Father smoked in home ); Do You Dip or Chew Tobacco: No; Hx Alcohol Use: Yes Alcohol type: hard liquor Hx Substance Use: No Preferred Language: British Communication Ability: Effective Visual Impairment: Limited Hearing Ability: Normal Beliefs That Will Affect Care: None marital status: Current Living Situation: Spouse current occupational status: employed current occupation: works at [employer] Feels Safe at Home: Yes Childhood Exposure to Second-Hand Smoke: Yes Diet: regular caffeine: Yes (2 bottles of mt dew soda) during the past year weight has: remained stable Dental Care, Regularly: Yes Review of Systems Constitutional: no fever and no chills Ear, Nose, Mouth, Throat: no hearing loss Respiratory: no cough and no dyspnea Cardiovascular: no chest pain Gastrointestinal: + abdominal pain (Radiating from left flank), + nausea and + vomiting Genitourinary: as per Subjective / HPI Musculoskeletal: + back pain (Left flank) Integumentary: no rash Neurologic: no localized weakness Physical Exam Constitutional: WD/WN, vitals as above Eyes: no conjunctival abnormality ENMT: Ears: no hearing impairment and no external ear abnormality Mouth: no oropharynx abnormality Neck: trachea midline Respiratory: normal respiratory effort, lungs clear to auscultation Cardiovascular: Rate/Rhythm: regular rate and regular rhythm Vessels: dorsalis pedis pulses present and radial pulses present Gastrointestinal (Abdomen): Abdomen is soft, nonrigid, and nondistended. There is no tenderness to palpation. There is no rebound tenderness or guarding. Musculoskeletal: No calf tenderness. Feet are warm and well-perfused Skin: no rashes Neurologic: moves all extremities Genitourinary: CVA tenderness noted with percussion on the left absent on the right Results & Data Vital Signs (Past 12 Hours) Vital Signs Temp Pulse Pulse Resp BP BP Pulse Ox 07/21/22 19:06 50 L 07/21/22 18:04 56 L 56 H 176/117 H 100 07/21/22 17:58 98 07/21/22 16:59 59 L 15 140/97 99 07/21/22 16:26 56 L 20 140/83 99 07/21/22 15:05 49 L 07/21/22 14:54 54 L 13 145/96 H 97 07/21/22 13:26 36.6 C 64 18 145/90 H 98 O2 Del Method 07/21/22 19:06 07/21/22 18:04 Room Air 07/21/22 17:58 Room Air 07/21/22 16:59 Room Air 07/21/22 16:26 Room Air 07/21/22 15:05 07/21/22 14:54 Room Air 07/21/22 13:26 Room Air PG Care Time/CCT Total # of Minutes Spent Total Time Spent with Patient: Total time spent is greater than 50% in coordination of care (as documented) at patient's floor/unit and/or counseling patient: Coding Level of Care Code 05577 IN/OBS CONSULT LVL 5,80M Diagnoses Left nephrolithiasis N20.0
[2022-07-21] MEDS ORDERED: KETOROLAC TROMETHAMINE 15 MG/ML VIAL IV PRN (21:06)
[2022-07-21] MEDS ORDERED: TAMSULOSIN HCL 0.4 MG CAP PO ONE (21:06)
[2022-07-21] MEDS ORDERED: MoRPHine SULFATE 2 MG/ML CARP IV PRN (21:06)
[2022-07-21] MEDS ORDERED: MoRPHine SULFATE 4 MG/ML 1 ML CARP\\VIAL IM PRN (21:06)
[2022-07-21] MEDS: MoRPHine SULFATE 4 MG/ML 1 ML CARP\\VIAL IV PRN (21:52)
[2022-07-22] MEDS: SODIUM CHLORIDE 0.9% 1000ML 1,000 ML IV SCH (05:29)
[2022-07-22] MEDS ORDERED: CIPROFLOXACIN / D5W 400 MG/200 ML BAG IV SCH (06:00)
[2022-07-22] MEDS: PROPRANOLOL HCL 20 MG TAB PO SCH (07:22)
[2022-07-22] MEDS: buPROPion XL 300 MG TABCR PO SCH (07:22)
[2022-07-22] MEDS: lisinopril 10 MG TAB PO SCH (07:22)
[2022-07-22] MEDS: TAMSULOSIN HCL 0.4 MG CAP PO SCH (07:22)
[2022-07-22] MEDS: MoRPHine SULFATE 4 MG/ML 1 ML CARP\\VIAL IV PRN ×3 (09:47→19:59)
--- NOTE | 2022-07-22 09:56 | Urology Progress Note ---
Date of Service July 22, 2022 Assessment & Plan (1) Left ureteral stone: (2) Hydronephrosis concurrent with and due to calculi of kidney and ureter: Plan: Follow-up of left ureteral stone with hydronephrosis Patient is afebrile with stable vitals Today's labs - creatinine 0.68, WBC 4.57, Hgb 11.2 UA on arrival was not suggestive of infection She reports intermittent pain relieved with as needed analgesia We discussed options for stone management including trial of passage versus surgical options. Discussed option for left ureteral stent placement while inpatient. Ureteral stents were discussed as well as post-operative issues and pain management. We discussed need for stone treatment at a later date. Discussed outpatient surgical options including ESWL or ureteroscopy if pain is controlled. This is her second presentation for renal colic, so she would like to proceed with surgical intervention today. Given her renal colic in the context of an obstructing 6 mm left ureteral stone, will proceed with OR for cystoscopy, Left retrograde pyelogram and Left stent placement. Risks and benefits to be reviewed with patient by Dr. Luciano. OR notified. Will cover with IV Ciprofloxacin preoperatively. Keep NPO for procedure. Admission and Anticipated Discharge Date Admission Date: July 21, 2022 Supervising Physician Co-Signing Physician Notes Discussed patient with PATRICK. Agree with plan. To OR for cysto, left retrograde, left stent Subjective Patient seen and examined at bedside this morning. She is awake and sitting up in bed. No acute issues overnight. She reports episode of pain this morning, relieved with analgesia. No fever or chills. No nausea or vomiting. She is voiding without difficulty. Currently NPO. Review of Systems Constitutional: as per Subjective / HPI Gastrointestinal: as per Subjective / HPI Genitourinary: as per Subjective / HPI Physical Exam Constitutional: well developed and well nourished; no acute distress Eyes: no scleral abnormality Neck: trachea midline Respiratory: normal respiratory effort; no respiratory distress and no labored breathing Cardiovascular: Extremities: no pedal edema Gastrointestinal (Abdomen): Inspection/Auscultation: abdomen normal to inspection; abdomen not distended Musculoskeletal: Head/Neck/Chest: normocephalic and head atraumatic Neurologic: moves all extremities and awake Psychiatric: Orientation: alert and oriented x 3 Genitourinary: + CVA tenderness (mild tenderness to palpation left lower flank) Results & Data Vital Signs (Past 12 Hours) Vital Signs Temp Pulse Resp BP Pulse Ox O2 Del Method 07/22/22 07:40 36.4 C L 60 16 115/76 96 Room Air PG Care Time/CCT Total # of Minutes Spent Total Time Spent with Patient: Total time spent is greater than 50% in coordination of care (as documented) at patient's floor/unit and/or counseling patient: Coding Level of Care Code 71196 SUB INP/OBS CARE /25MIN Diagnoses Left ureteral stone N20.1 Hydronephrosis concurrent with and due to calculi of kidney and ureter N13.2
[2022-07-22 10:25] LABS: Basophils # (auto) 0.06 K/uL (0-0.2); Basophils % (auto) 1.3 %; Eosinophils # (auto) 0.13 K/uL (0-0.50); Eosinophils % (auto) 2.8 %; Hematocrit (blood only) 32.6 % (37.0-47.0); Hemoglobin 11.2 g/dl (12.0-16.0); Immature Granulocytes # (auto) 0.01 K/uL (0.01-0.20); Immature Granulocytes % (auto) 0.2 %; Lymphocytes # (auto) 1.55 K/uL (1.2-3.4); Lymphocytes % (auto) 33.9 %; Mean Corpuscular Hemoglobin 29.2 pg (25.0-34.0); Mean Corpuscular Hgb Conc 34.4 g/dL (32.0-36.0); Mean Corpuscular Volume 85.1 fL (80.0-100.0); Mean Platelet Volume 12.9 fL (9.4-12.4); Monocytes # (auto) 0.48 K/uL (0.11-0.59); Monocytes % (auto) 10.5 %; Neutrophils # (auto) 2.34 K/uL (1.40-6.50); Neutrophils % (auto) 51.3 %; Platelet Count 190 K/uL (130-400); RDW Coefficient of Variation 12.5 % (11.5-14.5); RDW Standard Deviation 38.5 fL (36.4-46.3); Red Blood Count 3.83 M/uL (4.20-5.40); White Blood Count 4.57 K/ul (4.8-10.8)
[2022-07-22 10:40] LABS: BUN Creatinine Ratio 29.4 (10-20); Calcium 8.1 mg/dl (8.6-10.3); Creatinine Clr Calc Pharmacy 114.5 ml/min; Est GFR (African American) 120.7 ml/min; Est GFR (Non-African American) 104.2 ml/min; Potassium 3.8 mmol/L (3.5-5.1)
--- NOTE | 2022-07-22 12:13 | Anesthesiology Consultation ---
Date of Service July 22, 2022 Assessment & Plan Chart Review Chart Review: Acceptable Risk for Surgery and Patient NOT seen in Pre Admission Testing Consults Requested none ASA ASA3 Proposed Anesthesia Anesthesia Type: General History Surgery Operation Date: 07/22/22 08:55 Proposed Procedures p Cystoscopy, Left Retrograde Pyelogram, Left Stent Placement - Kurt Waldrop MD Height/Weight Height: 5 ft 4 in Weight: 95.3 kg Allergies Allergy/AdvReac Type Severity Reaction Status Date / Time amoxicillin Allergy Severe Hives, Verified 07/21/22 16:55 Passed Out, Incontinence milk Allergy Intermediate Gastrointestinal Unverified 07/21/22 16:55 Upset Medications Home Medications Medication Instructions Recorded Confirmed Last Taken bupropion HCl 300 mg 24 hr tablet, 300 mg PO QAM 11/21/20 07/21/22 07/20/22 extended release ibuprofen 200 mg tablet (Advil) 200 - 400 mg PO Q6H PRN Pain 11/21/20 07/21/22 07/20/22 lisinopril 10 mg tablet 10 mg PO DAILY 11/21/20 07/21/22 07/20/22 vitamin C 50 mg-biotin 1,250 mcg 1 tab PO DAILY 04/26/21 07/21/22 07/20/22 chewable tablet (Ttxj-Rrtt-Jwpao (vit C-biotin)) cholecalciferol (vitamin D3) 125 125 mcg PO DAILY 07/21/22 07/21/22 07/20/22 mcg (5,000 unit) capsule propranolol 40 mg tablet 40 mg PO DAILY 07/21/22 07/21/22 07/20/22 tamsulosin 0.4 mg capsule 0.4 mg PO DAILY 07/21/22 07/21/22 07/20/22 vitamin B complex 1 tab PO DAILY 07/21/22 07/21/22 07/20/22 Active Medications Generic Name Dose Route Start Last Admin Trade Name Freq PRN Reason Stop Dose Admin Bupropion HCl 300 mg 07/22/22 09:00 07/22/22 07:22 Bupropion Xl 300 Mg Tabcr PO 08/21/22 08:59 300 mg QAM RIKY Administration Sodium Chloride 1,000 mls @ 100 mls/hr 07/21/22 19:15 07/22/22 05:29 Nss 1000ml IV 07/22/22 15:14 100 mls/hr .Q10H RIKY Administration Lisinopril 10 mg 07/22/22 09:00 07/22/22 07:22 Lisinopril 10 Mg Tab PO 08/21/22 08:59 10 mg DAILY RIKY Administration Morphine Sulfate 2 mg 07/21/22 21:06 07/22/22 05:29 Morphine Sulfate 2 Mg/Ml Carp IV 08/04/22 21:05 2 mg Q4H PRN Administration Pain (SCALE 4,5,6) Morphine Sulfate 4 mg 07/21/22 21:46 07/22/22 09:47 Morphine Sulfate 4 Mg/Ml 1 Ml Carp\Vial IV 08/04/22 21:05 4 mg Q4H PRN Administration Pain (SCALE 7,8,9,10) Propranolol HCl 40 mg 07/22/22 09:00 07/22/22 07:22 Propranolol Hcl 20 Mg Tab PO 08/21/22 08:59 40 mg DAILY RIKY Administration Tamsulosin HCl 0.4 mg 07/22/22 09:00 07/22/22 07:22 Tamsulosin Hcl 0.4 Mg Cap PO 08/21/22 08:59 0.4 mg QAM RIKY Administration Past Medical History Medical History COVID-19 (04/2020) Depression Hypertension 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 Grandfather (Maternal) , Passed in late 70's from Bone Cancer No problems noted. Grandfather (Paternal) , Passed in 70's of Pancreatic Cancer No problems noted. Mother No problems noted. Father , Passed age 42 of [place] No problems noted. Brother No problems noted. Son No problems noted. Son No problems noted. Son No problems noted. Past Surgical History Surgical History History of appendectomy History of delivery (2004) History of delivery (2005) History of foot surgery Right Foot - Multiple procedures - tendon repair and pin placement History of ovarian cystectomy (2012) History of tubal ligation (2005) History of umbilical hernia repair (2004) History of vaginal hysterectomy (2012) History of wisdom tooth extraction (1989) Past Anesthesia History No Hx of Anesthesia Complications and No Family Hx of Anesthesia Complications History of PONV No Hx of PONV and No Hx of Motion Sickness Social History Smoking Status: Current every day smoker tobacco type: smokeless tobacco Smoking cigarettes per day: Vapes. Do You Dip or Chew Tobacco: No Hx Alcohol Use: No Alcohol type: hard liquor Hx Substance Use: No Physical Exam Vital Signs Last Vital Signs Temp 36.4 C L 07/22/22 07:40 Pulse 60 07/22/22 07:40 Resp 16 07/22/22 07:40 BP 115/76 07/22/22 07:40 Pulse Ox 96 07/22/22 07:40 O2 Del Method Room Air 07/22/22 07:40 Testing Laboratory Results 07/22/22 09:12 07/22/22 09:12 Urine Color Yellow 07/21/22 14:35 Urine Appearance Clear (Clear) 07/21/22 14:35 Urine pH 5.5 (4.5-7.5) 07/21/22 14:35 Ur Specific [place] 1.019 (1.000-1.030) 07/21/22 14:35 Urine Protein 1+ (Negative) H 07/21/22 14:35 Urine Glucose (UA) Negative (Negative) 07/21/22 14:35 Urine Ketones Negative (Negative) 07/21/22 14:35 Urine Nitrite Negative (Negative) 07/21/22 14:35 Ur Leukocyte Esterase Trace (Negative) H 07/21/22 14:35 Urine WBC (Auto) 1-5 /hpf (0-5) 07/21/22 14:35 Urine RBC (Auto) >30 /hpf (0-4) H 07/21/22 14:35 U Hyaline Cast (Auto) 1-5 /lpf (0-5) 07/21/22 14:35 U Epithel Cells (Auto) 10-20 /lpf (0-5) H 07/21/22 14:35 Urine Bacteria (Auto) Negative (Negative) 07/21/22 14:35 Electrocardiogram Date: 10/27/21 Findings: + NSR @ (@ 60 w/ SA)
[2022-07-22] MEDS ORDERED: LABETALOL HCL IV 5 MG/ML 20ML IV PRN (13:19)
[2022-07-22] MEDS ORDERED: fentaNYL citrate PF 100 MCG/2 ML VIAL IV PRN (13:19)
[2022-07-22] MEDS ORDERED: ATROPINE SULFATE 0.1 MG/ML 10ML SYR IV PRN (13:19)
[2022-07-22] MEDS ORDERED: PROMETHAZINE HCL 12.5 MG in SODIUM CHLORIDE 0.9% 50 ML IV PRN (13:19)
[2022-07-22] MEDS ORDERED: ePHEDrine sulfate 50 MG/ML AMP IV PRN (13:19)
[2022-07-22] MEDS ORDERED: FLUMAZENIL 0.1 MG/1 ML 10 ML VIAL IV PRN (13:19)
[2022-07-22] MEDS ORDERED: NALOXONE HCL 0.4 MG/1 ML VIAL/CARP IV PRN (13:19)
[2022-07-22] MEDS ORDERED: MIDAZOLAM HCL 1 MG/ML 2ML VIAL ONE (13:26)
[2022-07-22] MEDS ORDERED: ceFAZolin 2,000 MG/15 ML IV PUSH IV ONE (13:30)
[2022-07-22] MEDS ORDERED: PROPOFOL IV EMULSION 10 MG/ML 20 ML VIAL IV ONE (13:42)
[2022-07-22] MEDS ORDERED: KETAMINE 50 MG/5 ML SYRINGE ONE (13:42)
[2022-07-22] MEDS ORDERED: LIDOCAINE 2% 2 ML VIAL/AMP(20MG/ML) INFIL ONE (13:43)
[2022-07-22] MEDS ORDERED: DEXAMETHASONE SOD INJ 4 MG/ML VIAL ONE (13:43)
[2022-07-22] MEDS ORDERED: DIATRIZOATE MEGLUMINE 30% 100ML VIAL INSTIL ONE (13:48)
--- NOTE | 2022-07-22 13:53 | Post Operative Brief Note ---
PG Immediate Post Op with CF Date of Surgery July 22, 2022 Pre & Post Diagnosis Operation Date: 07/22/22 08:55 Pre-Op Diagnosis: OBSTRUCTING NEPHROLITHIASIS Post-Op Diagnosis: OBSTRUCTING NEPHROLITHIASIS I identified the patient and participated in the time-out.: Yes Procedure Operation Date: 07/22/22 08:55 Actual Procedures p Cystoscopy, Left Retrograde Pyelogram, Left Stent Placement(Left) - Jacob Luciano MD Surgeon Jacob Luciano MD Warping Machine Operator None Estimated Blood Loss 0 Findings See Below Mild left hydro. Retrograde showed no extravasation. Stent in appropriate position Anesthesia Type MAC Complications none
--- NOTE | 2022-07-22 14:07 | Operative Report ---
PG Post Operative Report Pre & Post Diagnosis Operation Date: 07/22/22 08:55 Pre-Op Diagnosis: Left ureteral stone: Hydronephrosis concurrent with and due to calculi of kidney and ureter Post-Op Diagnosis: Left ureteral stone: Hydronephrosis concurrent with and due to calculi of kidney and ureter I identified the patient and participated in the time-out.: Yes Procedure Operation Date: 07/22/22 08:55 Actual Procedures p Cystoscopy, Left Retrograde Pyelogram, with radiographic interpretation left Stent Placement(Left) - Jacob Luciano MD Surgeon Jacob Luciano MD Mixing Machine Attendant None Estimated Blood Loss 0 Findings See Below Mild left hydro. No extrav. Stent in appropriate position Specimens None Drains 6 [place] by 26 cm left ureteral stent Anesthesia Type MAC Complications none Indications 47-year-old female with an obstructing left ureteral calculus and intractable pain Description of Procedure After informed consent was obtained, the patient was transported operative suite. MAC anesthesia was induced. The patient was placed in dorsal lithotomy position prepped and draped in a sterile fashion. They received preoperative ancef for antibiotic prophylaxis. An appropriate surgical timeout was performed. A 22 [place] rigid scope was inserted per urethra into the bladder. Franco cystoscopy revealed no stones or lesions. I turned my attention the left ureteral orifice and intubated this with a 5 [place] open-ended catheter. A left retrograde pyelogram was shot which showed mild left hydronephrosis. A sensor wire was advanced into the kidney and confirmed fluoroscopically. A 6 [place] by 26 cm left ureteral stent was deployed with a good proximal coil in the renal pelvis and a good distal coil noted in the bladder. These were confirmed fluoroscopically and under direct visualization, respectively. The bladder was emptied and the scope was removed. This concluded the end of the case. All counts were correct at the end of the case. I was present, scrubbed, and actively participated for the entirety of the procedure. I attest to the content of the Intraoperative Record and any orders documented therein. Any exceptions are noted below.
--- NOTE | 2022-07-22 14:33 | Anesthesiology Progress Note ---
Date of Service July 22, 2022 Anesthesia Post Procedure Vital Signs Vital Signs: Temp Pulse Pulse Pulse Resp BP BP 07/22/22 14:10 48 L 12 133/81 07/22/22 14:30 36.7 C 50 L 12 124/72 07/22/22 14:20 49 L 12 120/82 07/22/22 14:00 60 14 125/79 07/22/22 13:58 36.0 C L 66 14 135/82 07/22/22 07:40 36.4 C L 60 16 115/76 07/21/22 20:54 07/21/22 20:54 07/21/22 20:54 07/21/22 20:54 36.6 C 65 14 137/84 07/21/22 20:54 36.6 C 65 14 137/84 07/21/22 20:28 07/21/22 20:00 56 L 16 138/87 07/21/22 19:00 55 L 15 185/109 H 07/21/22 19:06 50 L 07/21/22 18:04 56 L 56 H 176/117 H 07/21/22 17:58 07/21/22 16:59 59 L 15 140/97 07/21/22 16:26 56 L 20 140/83 07/21/22 15:05 49 L 07/21/22 14:54 54 L 13 145/96 H Pulse Ox Pulse Ox O2 Del Method O2 Del Method 07/22/22 14:10 100 Room Air 07/22/22 14:30 99 Room Air 07/22/22 14:20 98 Room Air 07/22/22 14:00 95 Room Air 07/22/22 13:58 93 Room Air 07/22/22 07:40 96 Room Air 07/21/22 20:54 Room Air 07/21/22 20:54 Room Air 07/21/22 20:54 97 Room Air 07/21/22 20:54 97 Room Air 07/21/22 20:54 97 Room Air 07/21/22 20:28 Room Air 07/21/22 20:00 97 Room Air 07/21/22 19:00 96 Room Air 07/21/22 19:06 07/21/22 18:04 100 Room Air 07/21/22 17:58 98 Room Air 07/21/22 16:59 99 Room Air 07/21/22 16:26 99 Room Air 07/21/22 15:05 07/21/22 14:54 97 Room Air Pain Intensity Left Flank: Pain Intensity: 3 Transfer of Care Handoff Completed per policy Notes Mental Status: alert / awake / arousable Patient Amnestic to Procedure: Yes Nausea / Vomiting: adequately controlled Pain: adequately controlled Airway Patency, RR, SpO2: stable & adequate BP & HR: stable & adequate Hydration State: stable & adequate Anesthetic Complications: no major complications apparent
--- NOTE | 2022-07-22 14:42 | Fluoroscopy Report ---
INTRAOPERATIVE RADIOGRAPHS CLINICAL HISTORY: Left ureteral stent placement. Fluoro time: 7 seconds. Ka,r: 2.06 mGy FINDINGS: 5 spot fluoroscopic views of the left abdomen are correlated with abdominal radiograph dict ated 07/21/2022. There is contrast opacification of the left ureter. A filling defect within the distal left ureter may represent an obstructing ureteral stone. A wire was advanced to the level of the lef t renal pelvis. The final image shows the proximal end of a left renal stent in appropriate position. IMPRESSION: Intraoperative images from a left ureteral stent placement procedure as above. Electronically signed by: Bandar Valentine M.D. 07/22/2022 2:40 PM
--- NOTE | 2022-07-22 15:05 | Discharge Summary ---
Date of Service July 22, 2022 Admission HPI Per Admitting Provider This is a 47 y/o female with a history of myxoid liposarcoma s/p resection and XRT, HTN, and depression who presents to the ED today with recurrence of left flank pain from known kidney stone. Pt reports she developed the acute onset of left flank pain with associated nausea and vomiting four days ago and was seen in the ED at [facility] that night. Diagnosed with a 4.5 mm left kidney stone and sent home with Percocet and Flomax, told it would likely pass on its own but that she should follow-up with urology as outpatient. Over the weekend, she was feeling better. Took Flomax x 2 doses, used Percocet at night initially but then didn't take it last night since the pain seemed to be improved. This morning, she developed recurrent left flank and LLQ pain similar to last week and the Percocet was providing no relief so came to the ED for evaluation. She has also noted intermittent hematuria when the pain is worse. First episode of hematuria was a few weeks ago, preceded the pain. She denies prior history of nephrolithiasis. She describes the pain as constant and similar to labor pains but not easing off until she receives pain medication. It does radiate to her mid-back on the left and down to left groin area. Today, she had associated nausea but no further emesis. Denies fevers, chills, sweats, CP, SOB, VALE, dizziness. Urine output has been decreased with the sensation of incompletely emptying. Initially, pain in the ED was relieved with Toradol but then recurred. After morphine 4 mg x 2 doses, pain is controlled again. ED provider spoke with urology regarding possible stent placement tomorrow. Admission Exam Per Admitting Provider Constitutional: well developed and well nourished; no acute distress Eyes: + anicteric sclerae ENMT: external ear and nose normal, oropharynx normal Neck: trachea midline Respiratory: no respiratory distress and no labored breathing Auscultation: lungs clear to auscultation bilaterally; no rales, no rhonchi and no wheezes Cardiovascular: Rate/Rhythm: regular rate and regular rhythm Heart Sounds: no murmur Vessels: dorsalis pedis pulses present and radial pulses present Extr emities: no pedal edema Gastrointestinal (Abdomen): Inspection/Auscultation: normal bowel sounds; abdomen not distended Percussion/Palpation: + abdomen tender (mild LLQ and left flank) and abdomen soft Musculoskeletal: Head/Neck/Chest: normocephalic, head atraumatic and neck supple Skin: no jaundice B Neurologic: moves all extremities; no focal motor deficits and not confused Psychiatric: A+Ox3, euthymic affect Principal Diagnosis Left ureteral stone with hydronephrosis Discharge Exam General: Sitting comfortably in bed, not in distress, on room air HEENT: EOMI, OCNSUELO, MMM Chest: Clear breath sounds bilaterally, no wheezes or crackles CVS: Regular rate and rhythm, normal heart sounds, no murmur Abdomen: Soft, expected tenderness, not distended, normal bowel sounds Neuro: Awake, alert, oriented, conversing well, non focal Extremities: No cyanosis, clubbing or edema Discharge Data Allergies Allergy/AdvReac Type Severity Reaction Status Date / Time amoxicillin Allergy Severe Hives, Verified 07/21/22 16:55 Passed Out, Incontinence milk Allergy Intermediate Gastrointestinal Unverified 07/21/22 16:55 Upset Consultations 07/21/22 18:02 ED Decision to Admit Stat 07/21/22 21:06 Consult Urology Routine Procedures Performed Operation Date: 07/22/22 08:55 Actual Procedures p Cystoscopy, Left Retrograde Pyelogram, Left Stent Placement(Left) - Jacob Luciano MD Ordered Studies 07/21/22 13:29 US Kidney Bladder [US renal/blad retro comp] Stat 07/22/22 FL retrograde includes kub Routine Laboratory Results WBC 4.57 K/ul (4.8-10.8) L 07/22/22 09:12 RBC 3.83 M/uL (4.20-5.40) L 07/22/22 09:12 Hgb 11.2 g/dl (12.0-16.0) L 07/22/22 09:12 Hct 32.6 % (37.0-47.0) L 07/22/22 09:12 MCV 85.1 fL (80.0-100.0) 07/22/22 09:12 MCH 29.2 pg (25.0-34.0) 07/22/22 09:12 MCHC 34.4 g/dL (32.0-36.0) 07/22/22 09:12 RDW Std Deviation 38.5 fL (36.4-46.3) 07/22/22 09:12 RDW Coeff of Servando 12.5 % (11.5-14.5) 07/22/22 09:12 Plt Count 190 K/uL (130-400) 07/22/22 09:12 MPV 12.9 fL (9.4-12.4) H 07/22/22 09:12 Immature Gran % (Auto) 0.2 % 07/22/22 09:12 Neut % (Auto) 51.3 % 07/22/22 09:12 Lymph % (Auto) 33.9 % 07/22/22 09:12 [place] % (Auto) 10.5 % 07/22/22 09:12 Eos % (Auto) 2.8 % 07/22/22 09:12 Baso % (Auto) 1.3 % 07/22/22 09:12 Neut # (Auto) 2.34 K/uL (1.40-6.50) 07/22/22 09:12 Lymph # (Auto) 1.55 K/uL (1.2-3.4) 07/22/22 09:12 [place] # (Auto) 0.48 K/uL (0.11-0.59) 07/22/22 09:12 Eos # (Auto) 0.13 K/uL (0-0.50) 07/22/22 09:12 Baso # (Auto) 0.06 K/uL (0-0.2) 07/22/22 09:12 Immature Gran # (Auto) 0.01 K/uL (0.01-0.20) 07/22/22 09:12 Sodium 142 mmol/L (136-145) 07/22/22 09:12 Potassium 3.8 mmol/L (3.5-5.1) 07/22/22 09:12 Chloride 113 mmol/L (98-107) H 07/22/22 09:12 Carbon Dioxide 23 mmol/L (21-32) 07/22/22 09:12 Anion Gap 6 (3-11) 07/22/22 09:12 BUN 20 mg/dl (6-23) 07/22/22 09:12 Creatinine 0.68 mg/dl (0.6-1.2) 07/22/22 09:12 Est Cr Clr Drug Dosing 114.5 ml/min 07/22/22 09:12 Est GFR ( Amer) 120.7 ml/min 07/22/22 09:12 Est GFR (Non-Af Amer) 104.2 ml/min 07/22/22 09:12 BUN/Creatinine Ratio 29.4 (10-20) H 07/22/22 09:12 Glucose 93 mg/dl (70-99(Fasting)) 07/22/22 09:12 Calcium 8.1 mg/dl (8.6-10.3) L 07/22/22 09:12 Total Bilirubin 0.8 mg/dl (0.2-1.0) 07/21/22 14:35 AST 14 U/L (13-39) 07/21/22 14:35 ALT 10 U/L (7-52) 07/21/22 14:35 Alkaline Phosphatase 47 U/L (34-104) 07/21/22 14:35 Total Protein 6.8 gm/dl (6.0-8.3) 07/21/22 14:35 Albumin 4.3 gm/dl (3.4-5.0) 07/21/22 14:35 Globulin 2.5 gm/dl (2.5-4.0) 07/21/22 14:35 Albumin/Globulin Ratio 1.7 (0.9-2) 07/21/22 14:35 Urine Color Yellow 07/21/22 14:35 Urine Appearance Clear (Clear) 07/21/22 14:35 Urine pH 5.5 (4.5-7.5) 07/21/22 14:35 Ur Specific [place] 1.019 (1.000-1.030) 07/21/22 14:35 Urine Protein 1+ (Negative) H 07/21/22 14:35 Urine Glucose (UA) Negative (Negative) 07/21/22 14:35 Urine Ketones Negative (Negative) 07/21/22 14:35 Urine Blood 3+ (Negative) H 07/21/22 14:35 Urine Nitrite Negative (Negative) 07/21/22 14:35 Urine Bilirubin Negative (Negative) 07/21/22 14:35 Urine Urobilinogen Negative (Negative) 07/21/22 14:35 Ur Leukocyte Esterase Trace (Negative) H 07/21/22 14:35 Urine WBC (Auto) 1-5 /hpf (0-5) 07/21/22 14:35 Urine RBC (Auto) >30 /hpf (0-4) H 07/21/22 14:35 U Hyaline Cast (Auto) 1-5 /lpf (0-5) 07/21/22 14:35 U Epithel Cells (Auto) 10-20 /lpf (0-5) H 07/21/22 14:35 Urine Bacteria (Auto) Negative (Negative) 07/21/22 14:35 SARS-CoV-2, RNA, NAAT NEGATIVE (NEGATIVE) 07/21/22 17:53 Impressions Renal Ultrasound 07/21/22 13:29 ULTRASOUND KIDNEYS AND BLADDER CLINICAL HISTORY: Nephrolithiasis. Left flank pain. COMPARISON STUDY: Abdominal CT dated 11/16/2020 TECHNIQUE: Real-time, grayscale, and color flow sonography of the kidneys and bladder is performed. Images are reviewed in the transverse and longitudinal planes. FINDINGS: Kidneys: The kidneys are normal in size and echotexture. The right kidney measures 11.9 cm in length and the left kidney measures 12.3 cm in length. There is mild to moderate left-sided hydronephrosis. No hydronephrosis is seen on the right. An 8 mm calculus is seen in the left proximal ureter. No additional shadowing renal calculi are identified in either kidney. A 2.4 cm minimally complex cyst is seen in the right upper pole. There is no sonographic evidence of solid renal mass lesion. No perinephric fluid is identified. Bladder: The bladder is normal in appearance. Bilateral ureteral jets were seen. Upper abdomen: A 2.3 cm echogenic lesion in the right lobe of the liver is typical for a hemangioma. This was also seen on the 2020 CT scan. IMPRESSION: 1. There is an 8 mm calculus in the left proximal ureter causing mild to moderate hydronephrosis 2. No hydronephrosis is seen on the right. 3. Both bladder jets were identified. ACT 112: Negative or not required by law. Electronically signed by: Bandar Valentine M.D. 07/21/2022 3:55 PM KUB X-Ray 07/21/22 14:50 KUB HISTORY: Acute left-sided flank pain L flank pain with known 4.5mm stone COMPARISON: Renal ultrasound of same day, CT abdomen and pelvis 11/16/2020 FINDINGS: Nonobstructive bowel gas pattern. Renal shadows are obscured by bowel gas. 6 mm left ureteral calculus at the level L3-L4. Unchanged pelvic basin phleboliths. No pneumoperitoneum or pneumatosis. No fracture. IMPRESSION: 6 mm left ureteral calculus at the level of L3-L4. ACT 112: Negative or not required by law. The above report was generated using voice recognition software. It may contain grammatical, syntax or spelling errors. Electronically signed by: Junior Pastor M.D. 07/21/2022 3:54 PM Retrograde Pyelogram 07/22/22 00:00 INTRAOPERATIVE RADIOGRAPHS CLINICAL HISTORY: Left ureteral stent placement. Fluoro time: 7 seconds. Ka,r: 2.06 mGy FINDINGS: 5 spot fluoroscopic views of the left abdomen are correlated with abdominal radiograph dictated 07/21/2022. There is contrast opacification of the left ureter. A filling defect within the distal left ureter may represent an obstructing ureteral stone. A wire was advanced to the level of the left renal pelvis. The final image shows the proximal end of a left renal stent in appropriate position. IMPRESSION: Intraoperative images from a left ureteral stent placement procedure as above. Electronically signed by: Bandar Valentine M.D. 07/22/2022 2:40 PM Hospital Course (1) Hydronephrosis concurrent with and due to calculi of kidney and ureter: (2) Hypertension: (3) Depression: Plan Patient was admitted with left ureteral calculus with hydronephrosis (8mm calculus in left proximal ureter causing mild-mod hydronephrosis) and underwent Cystoscopy, Left Retrograde Pyelogram, with radiographic interpretation left S tent Placement(Left) by Dr Luciano. No evidence of urine infection or infected stone. Cleared by uro for discharge home with OP follow up. Pain meds as needed for pain. Stable for discharge home. Discharge Plan Discharge Items Patient Disposition: Home - Self-Care Reason For Visit: OBSTRUCTING NEPHROLITHIASIS Discharge Diagnosis: Left ureteral stone with hydronephrosis Activity: Resume your previous activity Non-emergency contact: Primary Care Provider and Urologist Call non-emergency contact if: you have any medication questions, your symptoms worsen, your pain is concerning for you and you have a fever Follow-up/Referrals: Crissy Webb, P.A. [Primary Care Provider] - 08/01/22 1:30 pm Diet: Regular Addtl Attending Provider Instructions: Pain meds as needed Follow up with urology for stent removal Pending Studies at Discharge: No Stand-Alone Forms: [facility] [employer], Smoking Cessation Medications and DC Order Prescriptions: Continued ibuprofen [Advil] 200 mg tablet 200 - 400 mg PO Q6H PRN (Reason: Pain) bupropion HCl 300 mg tablet extended release 24 hr 300 mg PO QAM lisinopril 10 mg tablet 10 mg PO DAILY Xcoj-Oequ-Jmnib (vit C-biotin) 50 mg -1,250 mcg tablet,chewable 1 tab PO DAILY propranolol 40 mg tablet 40 mg PO DAILY tamsulosin 0.4 mg capsule 0.4 mg PO DAILY vitamin B complex Tablet 1 tab PO DAILY cholecalciferol (vitamin D3) 125 mcg (5,000 unit) capsule 125 mcg PO DAILY Admission Data Admit Date/Time: 07/21/22 18:16 Attending Provider: Stepan Rosen Admit Provider: Juan Farr Primary Care Provider: Crissy Webb Other Providers: Marty Gibson ; Juan Farr
--- NOTE | 2022-07-22 17:19 | Hospitalist Progress Note ---
Date of Service July 22, 2022 Assessment & Plan (1) Hydronephrosis concurrent with and due to calculi of kidney and ureter: Plan: Left ureteral calculus with hydronephrosis - Renal US with 8mm calculus in left proximal ureter causing mild-mod hydronephrosis - S/p Cystoscopy, Left Retrograde Pyelogram, with radiographic interpretation left Stent Placement(Left) by Dr Luciano - No evidence of infection and not on ABx. Did receive preop ABx prophylaxis - Pain management - OP uro follow up for stent removal (2) Hypertension: Plan: BP stable. on lisinopril, propranolol (3) Depression: Plan: On bupropion Plan DVT ppx- SCD, ambulation Dispo- Discharge tomorrow morning Updated family at bedside Admission and Anticipated Discharge Date Admission Date: July 21, 2022 Subjective Seen and examined at bedside. Seen before and after the surgery. Post op she is complaining of heaviness and hematuria. Her left renal colic is much better. No N/V/fever/SOB. She is gonna have her first meal of the day now. She has concerns about going home tonight with her symptoms. Review of Systems Review of Systems: All systems reviewed & are unremarkable except as noted in Subjective Physical Exam Physical Exam: General: Sitting comfortably in bed, not in distress, on room air HEENT: EOMI, CONSUELO, MMM Chest: Clear breath sounds bilaterally, no wheezes or crackles CVS: Regular rate and rhythm, normal heart sounds, no murmur Abdomen: Soft, expected tenderness, not distended, normal bowel sounds Neuro: Awake, alert, oriented, conversing well, non focal Extremities: No cyanosis, clubbing or edema Results & Data Results & Data Vital Signs (Past 12 Hours) Vital Signs Temp Pulse Pulse Resp BP Pulse Ox O2 Del Method 07/22/22 16:51 36.9 C 45 L 16 127/82 97 Room Air 07/22/22 15:57 36.8 C 55 L 16 161/86 H 99 Room Air 07/22/22 15:20 36.8 C 55 L 18 162/78 H 98 Room Air 07/22/22 14:50 36.8 C 56 L 18 132/84 99 Room Air 07/22/22 14:10 48 L 12 133/81 100 Room Air 07/22/22 14:30 36.7 C 50 L 12 124/72 99 Room Air 07/22/22 14:20 49 L 12 120/82 98 Room Air 07/22/22 14:00 60 14 125/79 95 Room Air 07/22/22 13:58 36.0 C L 66 14 135/82 93 Room Air 07/22/22 07:40 36.4 C L 60 16 115/76 96 Room Air Laboratory Results Short CBC 07/22/22 Range/Units 09:12 WBC 4.57 L (4.8-10.8) K/ul Hgb 11.2 L (12.0-16.0) g/dl Hct 32.6 L (37.0-47.0) % Plt Count 190 (130-400) K/uL BMP 07/22/22 09:12 Sodium 142 Potassium 3.8 Chloride 113 H Carbon Dioxide 23 BUN 20 Creatinine 0.68 Glucose 93 Calcium 8.1 L Medications Administered Current Inpatient Medications Bupropion HCl (Bupropion Xl 300 Mg Tabcr) [facility] [place]: 08/21/22 08:59 Last Admin: 07/22/22 07:22 Dose: 300 mg Ketorolac Tromethamine (Ketorolac Tromethamine 15 Mg/Ml Vial) 15 mg IV Q6H PRN PRN Reason: Pain (SCALE 1,2,3) Stop: 07/26/22 21:05 Last Admin: 07/22/22 15:54 Dose: 15 mg Lisinopril (Lisinopril 10 Mg Tab) 10 mg PO DAILY [facility] Stop: 08/21/22 08:59 Last Admin: 07/22/22 07:22 Dose: 10 mg Morphine Sulfate (Morphine Sulfate 2 Mg/Ml Carp) 2 mg IV Q4H PRN PRN Reason: Pain (SCALE 4,5,6) Stop: 08/04/22 21:05 Last Admin: 07/22/22 05:29 Dose: 2 mg Morphine Sulfate (Morphine Sulfate 4 Mg/Ml 1 Ml Carp\Vial) 4 mg IV Q4H PRN PRN Reason: Pain (SCALE 7,8,9,10) Stop: 08/04/22 21:05 Last Admin: 07/22/22 14:59 Dose: 4 mg Ondansetron HCl (Ondansetron Inj 2 Mg/Ml 2 Ml Vial) 4 mg IV Q6H PRN PRN Reason: Nausea And Vomiting Stop: 08/20/22 19:14 Propranolol HCl (Propranolol Hcl 20 Mg Tab) 40 mg PO DAILY [facility] Stop: 08/21/22 08:59 Last Admin: 07/22/22 07:22 Dose: 40 mg Tamsulosin HCl (Tamsulosin Hcl 0.4 Mg Cap) 0.4 mg PO QAM [facility] Stop: 08/21/22 08:59 Last Admin: 07/22/22 07:22 Dose: 0.4 mg
[2022-07-23] MEDS: MoRPHine SULFATE 4 MG/ML 1 ML CARP\\VIAL IV PRN (01:52)
[2022-07-23] MEDS: lisinopril 10 MG TAB PO SCH (07:19)
[2022-07-23] MEDS: TAMSULOSIN HCL 0.4 MG CAP PO SCH (07:19)
[2022-07-23] MEDS: buPROPion XL 300 MG TABCR PO SCH (07:19)
[2022-07-23] MEDS: PROPRANOLOL HCL 20 MG TAB PO SCH (07:19)
[2022-07-23 07:35] VITALS: BP 130/80; PULSE 50; TEMP 97.5; O2SAT 98
[2022-07-23] MEDS ORDERED: oxyCODONE HCL IR 5 MG TAB (IMMEDIATE RELEASE) PO STA (07:36)
[2022-07-23] MEDS ORDERED: ACETAMINOPHEN 325 MG TAB PO SCH (08:00)
[2022-07-23 10:34] LABS: Hematocrit (blood only) 34.7 % (37.0-47.0); Hemoglobin 11.7 g/dl (12.0-16.0); Mean Corpuscular Hgb Conc 33.7 g/dL (32.0-36.0); Mean Corpuscular Volume 85.9 fL (80.0-100.0); Mean Platelet Volume 12.9 fL (9.4-12.4); Platelet Count 184 K/uL (130-400); RDW Coefficient of Variation 12.4 % (11.5-14.5); RDW Standard Deviation 38.9 fL (36.4-46.3); Red Blood Count 4.04 M/uL (4.20-5.40); White Blood Count 5.06 K/ul (4.8-10.8)
[2022-07-23 10:35] LABS: BUN Creatinine Ratio 23.6 (10-20); Calcium 8.5 mg/dl (8.6-10.3); Creatinine Clr Calc Pharmacy 108.2 ml/min; Est GFR (African American) 115.6 ml/min; Est GFR (Non-African American) 99.7 ml/min; Potassium 3.7 mmol/L (3.5-5.1)
--- NOTE | 2022-07-23 10:38 | Urology Progress Note ---
Date of Service July 23, 2022 Assessment & Plan (1) Calculus of proximal left ureter: Plan: - Pt POD#1 s/p cystoscopy and left ureteral stent placement with Dr. Luciano - Doing well, progressing as expected - Afebrile, lab work reviewed - creatinine pending, WBC 5.06 - Tolerating left ureteral stent with minimal bother - Okay to d/c from perspective - Recommend d/c with course of Tamsulosin, prn Pyridium and Oxybutynin, and prn pain medication for stent management - Expected clinical course reviewed, all questions answered - Will arrange outpatient follow-up with our service to discuss definitive stone management - Urology will sign off Admission and Anticipated Discharge Date Admission Date: July 21, 2022 Subjective Patient seen and examined at bedside this morning. She is awake and resting in bed. No acute issues overnight. She is voiding spontaneously, reports some dysuria and hematuria postoperatively. She has intermittent left lower abdominal discomfort/spasm with voiding. No nausea or vomiting. No fever or chills. Review of Systems Constitutional: as per Subjective / HPI Gastrointestinal: as per Subjective / HPI Genitourinary: as per Subjective / HPI Physical Exam Constitutional: well developed and well nourished; no acute distress Respiratory: normal respiratory effort; no respiratory distress and no labored breathing Gastrointestinal (Abdomen): Inspection/Auscultation: abdomen normal to inspection; abdomen not distended Musculoskeletal: Head/Neck/Chest: normocephalic and head atraumatic Neurologic: moves all extremities and awake Psychiatric: Orientation: alert and oriented x 3 Results & Data Vital Signs (Past 12 Hours) Vital Signs Temp Pulse Pulse Resp BP Pulse Ox O2 Del Method 07/23/22 07:34 36.4 C L 50 L 14 130/80 98 Room Air 07/23/22 02:02 36.7 C 64 16 132/79 95 Room Air PG Care Time/CCT Total # of Minutes Spent Total Time Spent with Patient: Total time spent is greater than 50% in coordination of care (as documented) at patient's floor/unit and/or counseling patient: Coding Level of Care Code 78833 SUB INP/OBS CARE 1/25MIN Diagnoses Calculus of proximal left ureter N20.1
[2022-07-23] MEDS ORDERED: IBUPROFEN 600 MG TAB PO SCH (11:00)
--- NOTE | 2022-07-23 16:02 | Discharge Summary ---
Date of Service July 23, 2022 Admission HPI Per Admitting Provider This is a 47 y/o female with a history of myxoid liposarcoma s/p resection and XRT, HTN, and depression who presents to the ED today with recurrence of left flank pain from known kidney stone. Pt reports she developed the acute onset of left flank pain with associated nausea and vomiting four days ago and was seen in the ED at [facility] that night. Diagnosed with a 4.5 mm left kidney stone and sent home with Percocet and Flomax, told it would likely pass on its own but that she should follow-up with urology as outpatient. Over the weekend, she was feeling better. Took Flomax x 2 doses, used Percocet at night initially but then didn't take it last night since the pain seemed to be improved. This morning, she developed recurrent left flank and LLQ pain similar to last week and the Percocet was providing no relief so came to the ED for evaluation. She has also noted intermittent hematuria when the pain is worse. First episode of hematuria was a few weeks ago, preceded the pain. She denies prior history of nephrolithiasis. She describes the pain as constant and similar to labor pains but not easing off until she receives pain medication. It does radiate to her mid-back on the left and down to left groin area. Today, she had associated nausea but no further emesis. Denies fevers, chills, sweats, CP, SOB, VALE, dizziness. Urine output has been decreased with the sensation of incompletely emptying. Initially, pain in the ED was relieved with Toradol but then recurred. After morphine 4 mg x 2 doses, pain is controlled again. ED provider spoke with urology regarding possible stent placement tomorrow. Admission Exam Per Admitting Provider Constitutional: well developed and well nourished; no acute distress Eyes: + anicteric sclerae ENMT: external ear and nose normal, oropharynx normal Neck: trachea midline Respiratory: no respiratory distress and no labored breathing Auscultation: lungs clear to auscultation bilaterally; no rales, no rhonchi and no wheezes Cardiovascular: Rate/Rhythm: regular rate and regular rhythm Heart Sounds: no murmur Vessels: dorsalis pedis pulses present and radial pulses present Extr emities: no pedal edema Gastrointestinal (Abdomen): Inspection/Auscultation: normal bowel sounds; abdomen not distended Percussion/Palpation: + abdomen tender (mild LLQ and left flank) and abdomen soft Musculoskeletal: Head/Neck/Chest: normocephalic, head atraumatic and neck supple Skin: no jaundice B Neurologic: moves all extremities; no focal motor deficits and not confused Psychiatric: A+Ox3, euthymic affect Principal Diagnosis Hydronephrosis concurrent with and due to calculi of kidney and ureter: Discharge Exam General: Sitting comfortably in bed, not in distress, on room air HEENT: EOMI, CONSUELO, MMM Chest: Clear breath sounds bilaterally, no wheezes or crackles CVS: Regular rate and rhythm, normal heart sounds, no murmur Abdomen: Soft, expected tenderness, not distended, normal bowel sounds Neuro: Awake, alert, oriented, conversing well, non focal Extremities: No cyanosis, clubbing or edema Discharge Data Allergies Allergy/AdvReac Type Severity Reaction Status Date / Time amoxicillin Allergy Severe Hives, Verified 07/21/22 16:55 Passed Out, Incontinence milk Allergy Intermediate Gastrointestinal Unverified 07/21/22 16:55 Upset Consultations 07/21/22 18:02 ED Decision to Admit Stat 07/21/22 21:06 Consult Urology Routine Procedures Performed Operation Date: 07/22/22 08:55 Actual Procedures p Cystoscopy, Left Retrograde Pyelogram, Left Stent Placement(Left) - Jacob Luciano MD Ordered Studies 07/21/22 13:29 US Kidney Bladder [US renal/blad retro comp] Stat 07/22/22 FL retrograde includes kub Routine Hospital Course (1) Hydronephrosis concurrent with and due to calculi of kidney and ureter: (2) Left nephrolithiasis: (3) Hypertension: (4) Depression: Plan 47 y/o female with a history of myxoid liposarcoma s/p resection and XRT, HTN, depression who presented to the ED with recurrent left flank pain due to known left nephrolithiasis. Imaging in the ED showed obstruction proximal stone with mild to moderate hydronephrosis. ED provider spoke with urology - initial plan for ESWL as outpatient but due to recurrent severe pain, pt referred for admission instead. Patient was admitted to medical floor. IV hydration, IV analgesics were initiated. On July 22atient underwent cystoscopy with left stent placement. Patient was observed overnight due to postprocedural pain. Patient was discharged home with NSAIDs, Pyridium and oxycodone for pain control. Patient to follow-up with PCP and urology as outpatient. Total Time Total Time Spent Total Time Spent (In Minutes): 45 Total Time Includes: Examination of the Patient, Discharge Planning, Medication Reconciliation, Communication With Other Providers and Other Discharge Plan Discharge Items Patient Disposition: Home - Self-Care Reason For Visit: OBSTRUCTING NEPHROLITHIASIS Discharge Diagnosis: Left ureteral stone with hydronephrosis Activity: Resume your previous activity Non-emergency contact: Primary Care Provider and Urologist Call non-emergency contact if: you have any medication questions, your symptoms worsen, your pain is concerning for you and you have a fever Follow-up/Referrals: Crissy Webb, P.A. [Primary Care Provider] - 08/01/22 1:30 pm Jacob Luciano MD [Physician] - (The Urololgy office will call you with a follow up appointment.) Diet: Regular Addtl Attending Provider Instructions: You were admitted to the hospital with stone in left ureter. You underwent placement of the ureteral catheter on July. You are prescribed ibuprofen as needed for mild to moderate pain and oxycodone for breakthrough pain. You are also prescribed Pyridium 100 mg to be taken up to 3 times a day for 2 days. You will notice your urine and stool to be red/orange when you take Pyridium. Please follow-up with your primary care doctor. Follow up with urology for stent removal Pending Studies at Discharge: No Stand-Alone Forms: [facility] TipRanks, Work/School Release, Smoking Cessation Medications and DC Order Prescriptions: New ibuprofen 800 mg tablet 800 mg PO Q8H PRN (Reason: pain) Qty: 20 0RF phenazopyridine [Pyridium] 100 mg tablet 100 mg PO PC PRN (Reason: pain) Qty: 6 0RF oxycodone 5 mg capsule 5 mg PO BID PRN (Reason: pain) Qty: 6 0RF Continued ibuprofen [Advil] 200 mg tablet 200 - 400 mg PO Q6H PRN (Reason: Pain) bupropion HCl 300 mg tablet extended release 24 hr 300 mg PO QAM lisinopril 10 mg tablet 10 mg PO DAILY [id number] (vit C-biotin) 50 mg -1,250 mcg tablet,chewable 1 tab PO DAILY propranolol 40 mg tablet 40 mg PO DAILY tamsulosin 0.4 mg capsule 0.4 mg PO DAILY vitamin B complex Tablet 1 tab PO DAILY cholecalciferol (vitamin D3) 125 mcg (5,000 unit) capsule 125 mcg PO DAILY Discharge Orders: Discharge Order (Routine); Ordered 07/23/22 Ordered By: Chan Cardoza Admission Data Admit Date/Time: 07/21/22 18:16 Attending Provider: Chan Cardoza Admit Provider: Juan Farr Primary Care Provider: Crissy Webb Other Providers: Juan Farr ; Marty Gibson ; Stepan Rosen Other Interventions: Discharge Summary Assessment (RN) Last Done: 07/23/22 12:23
== END 2022-07-23 13:07 | disposition home or self-care (01) | DRG 661 ==
LOC: ED 13:13 → SUATTDRO 18:16 → 3W 18:16